=== PATIENT | female | born 1950 | race Caucasian/White ===

== ENCOUNTER 2024-09-18 12:10 | Emergency (ER) | payer OTHER, SELFPAY ==
[2024-09-18 12:24] VITALS: BP 177/81; PULSE 110; RESP 17; TEMP 36.7; O2SAT 98; BMI 27.4
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
[2024-09-18 13:03] VITALS: O2SAT 96
[2024-09-18 13:04] VITALS: BP 175/89; PULSE 99; O2SAT 97
[2024-09-18 13:30] VITALS: BP 149/73; PULSE 92; O2SAT 95
[2024-09-18 14:00] VITALS: PULSE 90; O2SAT 98
== END 2024-09-18 14:05 | disposition home or self-care (01) ==
PROVIDERS: Emergency Provider Emergency Medicine
DX: S00.03XA Contusion of scalp, initial encounter (principal); S00.531A Contusion of lip, initial encounter; V49.88XA Car occupant (driver) (passenger) injured in other specified transport accidents, initial encounter; Y93.89 Activity, other specified; Y92.410 Unspecified street and highway as the place of occurrence of the external cause
CPT/HCPCS: 70450; 71045; 99283; 99284